=== PATIENT | male | born 1965 | race Caucasian/White ===

== ENCOUNTER 2017-08-18 09:36 | Inpatient (IN) | payer OTHER ==
[~2017-08-18] VITALS: Ht 177.8 cm; Wt 93.9 kg
[~2017-08-18 09:36] MED LIST: CALC500T42 PO; DIPH50IN2 IV; EPIN1INJ20 SQ/IV; HYDR250P IVP; LANTUS2P SC; NORC10TA2 PO; NOVOLOGSS SQ; Z.0.WALKERFRONT
[2017-08-18 09:41] VITALS: BP 126/71; PULSE 90; RESP 17; TEMP 98.3; O2SAT 99
[2017-08-18] MEDS ORDERED: CLIN150C14 PO ×2 (09:55→13:19)
[2017-08-18] MEDS ORDERED: LISI-519 PO ×2 (09:55→13:20)
[2017-08-18] MEDS ORDERED: LANTUS2P SQ ×3 (09:55→13:23)
[2017-08-18] MEDS ORDERED: NOVOLOGP2 SQ ×2 (09:56→13:21)
[2017-08-18] MEDS ORDERED: PIPERACIL-TAZO 4.5 GM PREMIX 100 ML IV STA (10:01)
[2017-08-18] MEDS ORDERED: VANCOMYCIN INJ 1,000 MG in SODIUM CHLOR 0.9% 250 ML INJ 250 ML IV STA (10:01)
[2017-08-18 10:05] VITALS: O2SAT 99
--- NOTE | 2017-08-18 10:05 | PD ---
HPI Chief Complaint: Skin Problem Time Seen by Provider: 10:00 Travel History International Travel<30 days: No Contact w/Intl Traveler<30days: No Traveled to known affect area: No History of Present Illness HPI 52-year-old male patient with history of diabetes, previous spinal surgery secondary to spinal abscess, has been following up with podiatry for a right foot ulcer, that has progressed into an osteomyelitis, here because he was sent in for admission to medicine and IV antibiotics. He denies any fevers or other issues. Modifying Factors: None Associated Signs & Symptoms: Right foot osteomyelitis Risk Factors: Diabetic PFSH Past Medical History Cancer: No Cardiovascular Problems: No Diabetes: Yes Patient Takes Glucophage: No Diminished Hearing: No Gastrointestinal Disorders: No Genitourinary: No Hypertension: Yes Implanted Vascular Access Dvce: No Musculoskeletal: No Neurologic: No Psychiatric: No Reproductive: No Respiratory: No Tetanus Vaccination: < 5 Years Past Surgical History Other Surgery: No Social History Alcohol Use: No Tobacco Use: No Substance Use: No Allergies-Medications (Allergen,Severity, Reaction): Coded Allergies: iodine (Unverified Allergy, Intermediate, HIVES, 08/18/17) potassium iodide (Unverified Allergy, Intermediate, HIVES, 08/18/17) povidone-iodine (Unverified Allergy, Intermediate, HIVES, 08/18/17) sodium iodide (Unverified Allergy, Intermediate, HIVES, 08/18/17) sodium iodide (Unverified Allergy, Intermediate, HIVES, 08/18/17) Reported Meds & Prescriptions Reported Meds & Active Scripts Active Reported Novolog Inj (Insulin Aspart) 1,000 Unit/10 Ml Vial 0 SQ DIRECTED Sliding Scale as directed. Lantus Inj (Insulin Glargine) 1,000 Unit/10 Ml Vial 60 Units SQ HS Clindamycin (Clindamycin HCl) 150 Mg Cap 300 Mg PO TID Lisinopril 5 Mg Tab 5 Mg PO DAILY Review of Systems Except as stated in HPI: all other systems reviewed are Neg Physical Exam Narrative GENERAL: Well-developed middle-age male patient currently in moderate distress. Awake and oriented 3. SKIN: Focused skin assessment warm/dry. There is notable erythema, edema, and a small ulcer at the right foot fourth and fifth digit area on the plantar surface mild edema over the right. Lateral malleolus with mild edema and erythema, mildly tender. HEAD: Atraumatic. Normocephalic. EYES: Pupils equal and round. No scleral icterus. No injection or drainage. ENT: No nasal bleeding or discharge. Mucous membranes pink and moist. NECK: Trachea midline. No JVD. CARDIOVASCULAR: Regular rate and rhythm. No murmur appreciated. RESPIRATORY: No accessory muscle use. Clear to auscultation. Breath sounds equal bilaterally. GASTROINTESTINAL: Abdomen soft, non-tender, nondistended. Hepatic and splenic margins not palpable. MUSCULOSKELETAL: No obvious deformities. No clubbing. No cyanosis. No edema. NEUROLOGICAL: Awake and alert. No obvious cranial nerve deficits. Motor grossly within normal limits. Normal speech. PSYCHIATRIC: Appropriate mood and affect; insight and judgment normal. Data Data Last Documented VS Vital Signs Date Time Temp Pulse Resp B/P (MAP) Pulse Ox O2 Delivery O2 Flow Rate FiO2 08/18/17 10:05 99 Room Air 08/18/17 09:41 98.3 90 17 126/71 (89) Orders Orders Sepsis Workup Initiated (08/18/17 ) Complete Blood Count With Diff (08/18/17 10:01) Comprehensive Metabolic Panel (08/18/17 10:01) Lactic Acid Sepsis Protocol (08/18/17 10:01) Blood Culture (08/18/17 10:01) Blood Glucose (08/18/17 10:01) Ecg Monitoring (08/18/17 10:01) Iv Access Insert/Monitor (08/18/17 10:01) Oximetry (08/18/17 10:01) Oxygen Administration (08/18/17 10:01) Piperacil-Tazo 4.5 Gm Premix (Zosyn 4.5 (08/18/17 10:01) Vancomycin Inj (Vancomycin Inj) (08/18/17 10:01) C-Reactive Protein (Crp) (08/18/17 10:01) Westergren Sedimentation Rate (08/18/17 10:01) Labs Laboratory Tests Test 08/18/17 10:10 White Blood Count 7.5 TH/MM3 Red Blood Count 5.30 MIL/MM3 Hemoglobin 15.9 GM/DL Hematocrit 46.4 % Mean Corpuscular Volume 87.5 FL Mean Corpuscular Hemoglobin 30.0 PG Mean Corpuscular Hemoglobin Concent 34.3 % Red Cell Distribution Width 12.8 % Platelet Count 207 TH/MM3 Mean Platelet Volume 9.0 FL Neutrophils (%) (Auto) 68.2 % Lymphocytes (%) (Auto) 21.5 % Monocytes (%) (Auto) 7.0 % Eosinophils (%) (Auto) 2.4 % Basophils (%) (Auto) 0.9 % Neutrophils # (Auto) 5.1 TH/MM3 Lymphocytes # (Auto) 1.6 TH/MM3 Monocytes # (Auto) 0.5 TH/MM3 Eosinophils # (Auto) 0.2 TH/MM3 Basophils # (Auto) 0.1 TH/MM3 CBC Comment DIFF FINAL Differential Comment Erythrocyte Sedimentation Rate 8 mm/hr Blood Urea Nitrogen 21 MG/DL Creatinine 1.27 MG/DL Random Glucose 92 MG/DL Total Protein 7.4 GM/DL Albumin 3.5 GM/DL Calcium Level 8.9 MG/DL Alkaline Phosphatase 71 U/L Aspartate Amino Transf (AST/SGOT) 20 U/L Alanine Aminotransferase (ALT/SGPT) 25 U/L Total Bilirubin 0.4 MG/DL Sodium Level 140 MEQ/L Potassium Level 3.8 MEQ/L Chloride Level 105 MEQ/L Carbon Dioxide Level 27.0 MEQ/L Anion Gap 8 MEQ/L Estimat Glomerular Filtration Rate 60 ML/MIN Lactic Acid Level 0.8 mmol/L C-Reactive Protein 0.90 MG/DL [facility] Medical Decision Making Medical Screen Exam Complete: Yes Emergency Medical Condition: Yes Medical Record Reviewed: Yes Interpretation(s) Laboratory Tests Test 08/18/17 10:10 Blood Urea Nitrogen 21 MG/DL (7-18) Estimat Glomerular Filtration Rate 60 ML/MIN (>89) C-Reactive Protein 0.90 MG/DL (0.00-0.30) Differential Diagnosis Right foot osteomyelitis Narrative Course Lab work initiated, IV antibiotics ordered after cultures have been drawn. Case is discussed with Dr. Prieto in for admission. Diagnosis Primary Impression: Osteomyelitis of right foot Admitting Information Admitting Physician Requests: Admit Brett De La Torre MD August 18, 2017 10:05
[2017-08-18 10:29] LABS: AUTOMATED NEUTROPHIL # 5.1 TH/MM3 (1.8-7.7); BASOPHIL # 0.1 TH/MM3 (0-0.2); BASOPHIL % 0.9 % (0.0-2.0); EOSINOPHIL # 0.2 TH/MM3 (0-0.4); EOSINOPHIL % 2.4 % (0.0-4.0); HEMATOCRIT 46.4 % (39.0-51.0); HEMOGLOBIN 15.9 GM/DL (13.0-17.0); LYMPH % 21.5 % (9.0-44.0); LYMPHOCYTE # 1.6 TH/MM3 (1.0-4.8); MEAN CELL VOLUME 87.5 FL (80.0-100.0); MEAN CORPUSCULAR HGB CONC 34.3 % (32.0-36.0); MONOCYTE # 0.5 TH/MM3 (0-0.9); NEUT % 68.2 % (16.0-70.0); PLATELET COUNT 207 TH/MM3 (150-450); RED CELL DISTRIBUTION WIDTH 12.8 % (11.6-17.2); WHITE BLOOD COUNT 7.5 TH/MM3 (4.0-11.0)
[2017-08-18 10:46] LABS: ALBUMIN 3.5 GM/DL (3.4-5.0); AST (GOT) 20 U/L (15-37); BLOOD UREA NITROGEN 21 MG/DL (7-18); CALCIUM 8.9 MG/DL (8.5-10.1); CHLORIDE 105 MEQ/L (98-107); CREATININE 1.27 MG/DL (0.60-1.30); GLOMERULAR FILTRATION RATE 60 ML/MIN (>89); GLUCOSE,RANDOM 92 MG/DL (74-106); SODIUM (NA) 140 MEQ/L (136-145)
[2017-08-18 10:49] LABS: ALKALINE PHOSPHATASE 71 U/L (45-117); ALT (GPT) 25 U/L (12-78); TOTAL BILIRUBIN ADULT 0.4 MG/DL (0.2-1.0); TOTAL PROTEIN 7.4 GM/DL (6.4-8.2)
[2017-08-18] MEDS ORDERED: GLUCAGON 1 MG/ML VIAL OTHER PRN (12:30)
[2017-08-18] MEDS ORDERED: DEXTROSE 50% IN WATER 50 ML VIAL(D50) IV PUSH PRN (12:30)
[2017-08-18] MEDS ORDERED: PRED5TAB PO (13:17)
[2017-08-18] MEDS ORDERED: BENA20TA PO (13:17)
[2017-08-18] MEDS ORDERED: GEMF600 PO (13:17)
--- NOTE | 2017-08-18 15:11 | HHI.HP ---
HPI Service [facility] Hospitalists Primary Care Physician Keena Barba MD Admission Diagnosis Right foot osteomyelitis Chief Complaint: Right foot ulcer Travel History International Travel<30 Days: No Contact w/Intl Traveler <30 Da: No Traveled to Known Affected Are: No History of Present Illness Mr. Huynh is a 52 y/o male with poorly controlled diabetes mellitus (hgb A1C 10.6% in April 2017), peripheral neuropathy and hx of T8-9 epidural abscess/ vertebral osteomyelitis in 2016. Pt has been having issues with a right foot callus on the bottom of the foot for the last several months which has been following with Dr. Barrett. Pt had a previous culture on 07/09/17 which grew out MSSA per discussion with Dr. Barrett. He was treated with Keflex. Then around 1-2 weeks ago he states that the wound opened and started oozing clear fluid fluid out. He was started on Clindamycin 300mg TID about 8 days ago. After that he had reported worsening swelling and erythema of the right foot and then noted streaking up the right foot/ankle. He saw Dr. Barrett 3 days ago and the streaking had receded and was sent for a MRI which reportedly noted possible osteomyelitis at the 5th MTP joint on 08/16/17. Pt was sent to the ED at [facility] [place] on 08/18/17 by his entry processor for concerns of possible osteomyelitis In the ED pt was given a dose of Zosyn and Vancomycin. Pt normally takes 60 units of Lantus HS and occasionally uses NovoLog SSI. He takes Lisinopril for his diabetes. Review of Systems Integumentary: COMPLAINS OF: Abnormal pigmentation Past Family Social History Past Medical History Poorly controlled, type 2 diabetes with neuropathy, HgbA1C 10.6% in 04/2017 Dyslipidemia Adhesive capsulitis of the shoulder Lumbar disc bulge T8-9 epidural abscess/vertebral osteomyelitis in 2016 Past Surgical History T8 and T9 decompressive laminectomy with transpedicular ventral epidural abscess evacuation on 05/27/[address] Olivier Mello cyst removal Reported Medications Lantus Inj (Insulin Glargine) 1,000 Unit/10 Ml Vial 60 Units SQ HS Novolog Inj (Insulin Aspart) 1,000 Unit/10 Ml Vial 0 SQ DIRECTED Sliding Scale as directed. 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 SKIN: Darkened area of skin on the lateral plantar aspect of the right foot, no significant erythema, no drainage. HEENT: Atraumatic. Normocephalic. No temporal or scalp tenderness. No scleral icterus. Airway patent. NECK: Trachea midline, supple, nontender. CARDIO: Regular. RESP: CTA bilaterally. No wheezes, rales, or rhonchi. ABD: +BS, soft, non-tender, nondistended. EXT: Extremities without clubbing, cyanosis, or edema. NEURO: Awake and alert. Motor and sensory grossly within normal limits. Normal speech. Laboratory Laboratory Tests Test 08/18/17 10:10 White Blood Count 7.5 Red Blood Count 5.30 Hemoglobin 15.9 Hematocrit 46.4 Mean Corpuscular Volume 87.5 Mean Corpuscular Hemoglobin 30.0 Mean Corpuscular Hemoglobin Concent 34.3 Red Cell Distribution Width 12.8 Platelet Count 207 Mean Platelet Volume 9.0 Neutrophils (%) (Auto) 68.2 Lymphocytes (%) (Auto) 21.5 Monocytes (%) (Auto) 7.0 Eosinophils (%) (Auto) 2.4 Basophils (%) (Auto) 0.9 Neutrophils # (Auto) 5.1 Lymphocytes # (Auto) 1.6 Monocytes # (Auto) 0.5 Eosinophils # (Auto) 0.2 Basophils # (Auto) 0.1 CBC Comment DIFF FINAL Differential Comment Erythrocyte Sedimentation Rate 8 Blood Urea Nitrogen 21 Creatinine 1.27 Random Glucose 92 Total Protein 7.4 Albumin 3.5 Calcium Level 8.9 Alkaline Phosphatase 71 Aspartate Amino Transf (AST/SGOT) 20 Alanine Aminotransferase (ALT/SGPT) 25 Total Bilirubin 0.4 Sodium Level 140 Potassium Level 3.8 Chloride Level 105 Carbon Dioxide Level 27.0 Anion Gap 8 Estimat Glomerular Filtration Rate 60 Lactic Acid Level 0.8 C-Reactive Protein 0.90 Date/Time Source Procedure Growth Status 08/18/17 10:10 Blood Peripheral Aerobic Blood Culture Pending Received 08/18/17 10:10 Blood Peripheral Anaerobic Blood Culture Pending Received Result Diagram: 08/18/17 1010 08/18/17 1010 Caprini VTE Risk Assessment Caprini VTE Risk Assessment: Mod/High Risk (score >= 2) Caprini Risk Assessment Model Point Value = 1 Point Value = 2 Point Value = 3 Point Value = 5 Age 41-60 Minor surgery BMI > 25 kg/m2 Swollen legs Varicose veins or History of unexplained or recurrent spontaneous Oral contraceptives or hormone replacement Sepsis (< 1 month) Serious lung disease, including pneumonia (< 1 month) Abnormal pulmonary function Acute myocardial infarction Congestive heart failure (< 1 month) History of inflammatory bowel disease Medical patient at bed rest Age 61-74 Arthroscopic surgery Major open surgery (> 45 min) Laparoscopic surgery (> 45 min) Malignancy Confined to bed (> 72 hours) Immobilizing plaster cast Central venous access Age >= 75 History of VTE Family history of VTE Factor V Leiden Prothrombin [id number] Lupus anticoagulant Anticardiolipin antibodies Elevated serum homocysteine Heparin-induced thrombocytopenia Other congenital or acquired thrombophilia Stroke (< 1 month) Elective arthroplasty Hip, pelvis, or leg fracture Acute spinal cord injury (< 1 month) Prophylaxis Regimen Total Risk Factor Score Risk Level Prophylaxis Regimen 0-1 Low Early ambulation 2 Moderate Order ONE of the following: *Sequential Compression Device (SCD) *Heparin 5000 units SQ BID 3-4 Higher Order ONE of the following medications: *Heparin 5000 units SQ TID *Enoxaparin/Lovenox 40 mg SQ daily (WT < 150 kg, CrCl > 30 mL/min) *Enoxaparin/Lovenox 30 mg SQ daily (WT < 150 kg, CrCl > 10-29 mL/min) *Enoxaparin/Lovenox 30 mg SQ BID (WT < 150 kg, CrCl > 30 mL/min) AND/OR *Sequential Compression Device (SCD) 5 or more Highest Order ONE of the following medications: *Heparin 5000 units SQ TID (Preferred with Epidurals) *Enoxaparin/Lovenox 40 mg SQ daily (WT < 150 kg, CrCl > 30 mL/min) *Enoxaparin/Lovenox 30 mg SQ daily (WT < 150 kg, CrCl > 10-29 mL/min) *Enoxaparin/Lovenox 30 mg SQ BID (WT < 150 kg, CrCl > 30 mL/min) AND *Sequential Compression Device (SCD) Assessment and Plan Problem List: (1) Diabetic foot ulcer ICD Codes: E11.621 - Type 2 diabetes mellitus with foot ulcer; L97.509 - Non- pressure chronic ulcer of other part of unspecified foot with unspecified severity Status: Chronic Plan: Diabetic foot wound Possible osteomyelitis - Pt is a 52 y/o male with poorly controlled diabetes mellitus (hgb A1C 10.6% in April 2017), peripheral neuropathy and hx of T8-9 epidural abscess/ vertebral osteomyelitis in 2015. - Pt has been having issues with a right foot callus on the bottom of the foot for the last several months which he has been following with Dr. Barrett. Pt had a previous culture on 07/09/17 which grew out MSSA per discussion with Dr. Barrett. He was treated with Keflex. Then around 1-2 weeks ago he states that the wound opened up and started oozing clear fluid fluid out. He was started on Clindamycin 300mg TID about 8 days ago. After that he had reported worsening swelling and erythema of the right foot and then noted streaking up the right foot/ankle. He saw Dr. Barrett 3 days ago and the streaking had receded and was sent for a MRI which reportedly noted possible osteomyelitis on 08/16/17. - Pt was sent to the ED at [facility] on 08/18/17 by his entry processor for concerns of possible osteomyelitis at the 5th MTP joint. - In the ED pt was given a dose of Zosyn and Vancomycin. - We will hold on continuing antibiotics at this time until podiatry evaluates and determines about surgery and bone biopsy - Supportive care - DVT prophylaxis with SCDs Diabetes mellitus, type 2, poorly controlled - Pt normally takes 60 units of Lantus HS and occasionally uses NovoLog SSI. - Cont. NovoLog SSI, medium dose - Levemir 30 units HS - Accu checks - Cont. Lisinopril Hyperlipidemia - Cont. home meds (2) DM (diabetes mellitus), type 2, uncontrolled ICD Codes: E11.65 - Type 2 diabetes mellitus with hyperglycemia Status: Chronic (3) Diabetic neuropathy ICD Codes: E11.40 - Type 2 diabetes mellitus with diabetic neuropathy, unspecified Status: Chronic (4) Hyperlipidemia ICD Codes: E78.5 - Hyperlipidemia, unspecified Status: Chronic Assessment and Plan Patient examined. Assessment and plan formulated with Alka Barrios PA-C. I agree with the above right plantar ulceration and possible 5th metatarsal joint infection discussed with dr Barrett. probably resect the joint and the infected tissue and close. pt given abx in ED. cont levemir and ssi. adjust as needed. await surgical cx's and bx. Physician Certification 2 Midnight Certification Type: Admission for Inpatient Services Order for Inpatient Services The services are ordered in accordance with Medicare regulations or non- Medicare payer requirements, as applicable. In the case of services not specified as inpatient-only, they are appropriately provided as inpatient services in accordance with the 2-midnight benchmark. Estimated LOS (days): 2 2 days is the estimated time the patient will need to remain in the hospital, assuming treatment plan goals are met and no additional complications. Post-Hospital Plan: Alka Campbell August 18, 2017 15:11 Baldev Prieto MD August 18, 2017 17:07
[2017-08-18] MEDS ORDERED: LIPI20TA PO (15:38)
[2017-08-18 16:00] VITALS: BP 159/96; PULSE 81; RESP 20; TEMP 98.2; O2SAT 97
[2017-08-18] MEDS ORDERED: ONDANSETRON HCL 4 MG/2 ML VIAL IV PRN (16:00)
[2017-08-18] MEDS ORDERED: INSULIN ASPART SUPPLEMENTAL SCALE SQ SCH (17:00)
[2017-08-18] MEDS: INSULIN ASPART SUPPLEMENTAL SCALE SQ SCH ×2 (18:04→21:00)
--- NOTE | 2017-08-18 19:23 | PD.CONS ---
History of Present Illness Service Podiatry/foot and ankle surgery Consult Requested By Reason for Consult Right foot ulceration with osteomyelitis Primary Care Physician Keena Barba MD Diagnoses: History of Present Illness Podiatry consultation for this 8-year-old male patient with history of diabetes and previous spinal surgery secondary to spinal abscess for right foot ulceration with fifth metatarsal head osteomyelitis right foot. Patient was sent by Dr. Barrett for IV antibiotics and surgical intervention. Patient denies any nausea vomiting fevers or chills. He states he is eager to get back to work. Review of Systems Constitutional: DENIES: Fatigue, Fever Endocrine: DENIES: Heat/cold intolerance Respiratory: DENIES: Cough, Shortness of breath Cardiovascular: DENIES: Chest pain, Palpitations Gastrointestinal: DENIES: Abdominal pain Musculoskeletal: DENIES: Joint pain Neurologic: DENIES: Abnormal gait Past Family Social History Allergies: Coded Allergies: iodine (Unverified Allergy, Intermediate, HIVES, 08/18/17) potassium iodide (Unverified Allergy, Intermediate, HIVES, 08/18/17) povidone-iodine (Unverified Allergy, Intermediate, HIVES, 08/18/17) sodium iodide (Unverified Allergy, Intermediate, HIVES, 08/18/17) sodium iodide (Unverified Allergy, Intermediate, HIVES, 08/18/17) Past Medical History As per HPI Active Ordered Medications Current Medications Medications (Trade) Dose Ordered Sig/Kai Route Start Time Stop Time Status Last Admin (Prinivil) 5 mg DAILY PO 08/19/17 09:00 (NovoLOG SUPPLEMENTAL SCALE) 1 ACHS SLIDING SCALE SQ 08/18/17 17:00 08/18/17 18:04 (D50w (Vial) Inj) 50 ml UNSCH PRN IV PUSH 08/18/17 12:30 (Glucagon Inj) 1 mg UNSCH PRN OTHER 08/18/17 12:30 (Levemir Inj) 30 units HS SQ 08/18/17 21:00 (Lipitor) 20 mg HS PO 08/18/17 21:00 (Tylenol) 650 mg Q4H PRN PO 08/18/17 16:00 (Zofran Inj) 4 mg Q6H PRN IV 08/18/17 16:00 Physical Exam Vital Signs Vital Signs Date Time Temp Pulse Resp B/P (MAP) Pulse Ox O2 Delivery O2 Flow Rate FiO2 08/18/17 16:00 98.2 81 20 159/96 (117) 97 08/18/17 14:06 Room Air 08/18/17 10:05 99 Room Air 08/18/17 10:05 99 08/18/17 09:41 98.3 90 17 126/71 (89) 99 Physical Exam GENERAL: This is a well-nourished, well-developed patient, in no apparent distress. SKIN: Right sub-met 5 ulceration HEAD: Atraumatic. EYES: Pupils equal round and reactive. ENT: Airway patent. NECK: Trachea midline. RESPIRATORY: Nonlabored breathing. MUSCULOSKELETAL:. Negative Homans sign bilaterally. NEUROLOGICAL: Awake and alert. Normal speech. Lower extremity physical exam: Vascular: Dorsalis pedis palpable, posterior tibial palpable. Capillary refill time within normal limits to digits 5 bilateral foot. Edema not present right foot Neuro: Gross sensation intact to bilateral lower extremity. Pinpoint sensation decreased to bilateral lower extremity. No hyperalgesia noted to bilateral lower extremity Dermatology: Normal temperature and turgor to bilateral lower extremity. Ulceration noted to right submet 5 with hyperkeratotic skin edges and surrounding erythema no drainage. Musculoskeletal: Tender to palpation to submet 5. Laboratory Laboratory Tests Test 08/18/17 10:10 White Blood Count 7.5 Red Blood Count 5.30 Hemoglobin 15.9 Hematocrit 46.4 Mean Corpuscular Volume 87.5 Mean Corpuscular Hemoglobin 30.0 Mean Corpuscular Hemoglobin Concent 34.3 Red Cell Distribution Width 12.8 Platelet Count 207 Mean Platelet Volume 9.0 Neutrophils (%) (Auto) 68.2 Lymphocytes (%) (Auto) 21.5 Monocytes (%) (Auto) 7.0 Eosinophils (%) (Auto) 2.4 Basophils (%) (Auto) 0.9 Neutrophils # (Auto) 5.1 Lymphocytes # (Auto) 1.6 Monocytes # (Auto) 0.5 Eosinophils # (Auto) 0.2 Basophils # (Auto) 0.1 CBC Comment DIFF FINAL Differential Comment Erythrocyte Sedimentation Rate 8 Blood Urea Nitrogen 21 Creatinine 1.27 Random Glucose 92 Total Protein 7.4 Albumin 3.5 Calcium Level 8.9 Alkaline Phosphatase 71 Aspartate Amino Transf (AST/SGOT) 20 Alanine Aminotransferase (ALT/SGPT) 25 Total Bilirubin 0.4 Sodium Level 140 Potassium Level 3.8 Chloride Level 105 Carbon Dioxide Level 27.0 Anion Gap 8 Estimat Glomerular Filtration Rate 60 Lactic Acid Level 0.8 C-Reactive Protein 0.90 Date/Time Source Procedure Growth Status 08/18/17 10:10 Blood Peripheral Aerobic Blood Culture Pending Received 08/18/17 10:10 Blood Peripheral Anaerobic Blood Culture Pending Received Result Diagram: 08/18/17 1010 08/18/17 1010 Assessment and Plan Assessment and Plan 52-year-old male with osteomyelitis to fifth metatarsal head with submetatarsal 5 ulceration Patient examined and evaluated with all questions answered Discussed [facility] with patient fifth metatarsal head positive for osteomyelitis Fifth metatarsal head continues to be a problem for patient as it continues to be source of ulceration to plantar fifth met head Patient understands all risks complications and benefits associated with surgical intervention and would like to proceed with surgical intervention as he is interested in getting back to work as soon as possible Discussed with patient and patient's To OR tomorrow N.p.o. after midnight Mayra Rosenthal DPM August 18, 2017 19:23
[2017-08-18 20:11] VITALS: BP 127/73; PULSE 76; RESP 20; TEMP 98.1; O2SAT 97
[2017-08-18] MEDS ORDERED: INSULIN DETEMIR 100 UNITS/ML VIAL SQ SCH (21:00)
[2017-08-18] MEDS: ATORVASTATIN 20 MG TAB PO SCH (22:01)
[2017-08-19 00:05] VITALS: BP 118/71; PULSE 78; RESP 20; TEMP 98.1; O2SAT 98
[2017-08-19 04:04] VITALS: BP 121/78; PULSE 69; RESP 20; TEMP 97.8; O2SAT 97
[2017-08-19] MEDS ORDERED: LACTATED RINGER'S 1000 ML IV PRN (05:45)
[2017-08-19] MEDS ORDERED: SODIUM CHLORID 0.9% 500 ML IV PRN (05:45)
[2017-08-19 08:00] VITALS: BP 111/71; PULSE 79; RESP 20; TEMP 97.5; O2SAT 96
[2017-08-19] MEDS: INSULIN ASPART SUPPLEMENTAL SCALE SQ SCH ×4 (08:00→21:00)
[2017-08-19 08:51] LABS: AUTOMATED NEUTROPHIL # 5.4 TH/MM3 (1.8-7.7); BASOPHIL # 0.1 TH/MM3 (0-0.2); BASOPHIL % 1.2 % (0.0-2.0); EOSINOPHIL # 0.3 TH/MM3 (0-0.4); EOSINOPHIL % 3.5 % (0.0-4.0); HEMATOCRIT 44.4 % (39.0-51.0); LYMPH % 18.5 % (9.0-44.0); LYMPHOCYTE # 1.4 TH/MM3 (1.0-4.8); MEAN CELL VOLUME 87.4 FL (80.0-100.0); MEAN CORPUSCULAR HEMOGLOBIN 29.6 PG (27.0-34.0); MEAN CORPUSCULAR HGB CONC 33.9 % (32.0-36.0); MEAN PLATELET VOLUME 9.5 FL (7.0-11.0); MONO % 7.3 % (0.0-8.0); MONOCYTE # 0.6 TH/MM3 (0-0.9); NEUT % 69.5 % (16.0-70.0); PLATELET COUNT 201 TH/MM3 (150-450); RED BLOOD COUNT 5.08 MIL/MM3 (4.50-5.90); RED CELL DISTRIBUTION WIDTH 12.7 % (11.6-17.2); WHITE BLOOD COUNT 7.8 TH/MM3 (4.0-11.0)
[2017-08-19] MEDS ORDERED: LISINOPRIL 5 MG TAB PO SCH (09:00)
[2017-08-19 09:15] LABS: BICARBONATE 27.3 MEQ/L (21.0-32.0); CALCIUM 9.1 MG/DL (8.5-10.1); CREATININE 1.05 MG/DL (0.60-1.30); MAGNESIUM 2.1 MG/DL (1.5-2.5)
[2017-08-19] MEDS: LISINOPRIL 5 MG TAB PO SCH (09:32)
[2017-08-19] MEDS ORDERED: D5-NS + KCL 20 MEQ INJ 1,000 ML IV SCH (10:00)
--- NOTE | 2017-08-19 10:02 | HHI.PR ---
Subjective Remarks lying in bed. no complaints Objective Vitals heart reg lung cta abd s/nt ext right plantar ulceration under 5th mtp joint no redness and no drainage. Vital Signs Date Time Temp Pulse Resp B/P (MAP) Pulse Ox O2 Delivery O2 Flow Rate FiO2 08/19/17 08:00 97.5 79 20 111/71 (84) 96 08/19/17 04:04 97.8 69 20 121/78 (92) 97 08/19/17 00:05 98.1 78 20 118/71 (87) 98 08/18/17 20:11 98.1 76 20 127/73 (91) 97 08/18/17 16:00 98.2 81 20 159/96 (117) 97 08/18/17 14:06 Room Air 08/18/17 10:05 99 Room Air 08/18/17 10:05 99 Result Diagram: 08/19/17 0720 08/19/17 0720 A/P Problem List: (1) Diabetic foot ulcer ICD Codes: E11.621 - Type 2 diabetes mellitus with foot ulcer; L97.509 - Non- pressure chronic ulcer of other part of unspecified foot with unspecified severity Status: Acute Plan: Diabetic foot wound Possible osteomyelitis - Pt is a 52 y/o male with poorly controlled diabetes mellitus (hgb A1C 10.6% in April 2017), peripheral neuropathy and hx of T8-9 epidural abscess/ vertebral osteomyelitis in 2015. - Pt has been having issues with a right foot callus on the bottom of the foot for the last several months which he has been following with Dr. Barrett. Pt had a previous culture on 07/09/17 which grew out MSSA per discussion with Dr. Barrett. He was treated with Keflex. Then around 1-2 weeks ago he states that the wound opened up and started oozing clear fluid fluid out. He was started on Clindamycin 300mg TID about 8 days ago. After that he had reported worsening swelling and erythema of the right foot and then noted streaking up the right foot/ankle. He saw Dr. Barrett 3 days ago and the streaking had receded and was sent for a MRI which reportedly noted possible osteomyelitis on 08/16/17. - Pt was sent to the [place] [facility] [place] by his benchroom shop optician for concerns of possible osteomyelitis at the 5th MTP joint. - In the ED pt was given a dose of Zosyn and Vancomycin. - We will hold on continuing antibiotics until after surgery - after discussing with podiatry they plan to resect the 5th mtp joint and involved soft tissue - DVT prophylaxis with SCDs Diabetes mellitus, type 2, poorly controlled - Pt normally takes 60 units of Lantus HS and occasionally uses NovoLog SSI. - Cont. NovoLog SSI, medium dose - we had him on 50 percent of his basal insulin last night. hypoglycemia today in 50s given d50. can give d5ns while npo and taking po after surgery. discussed with RN Hyperlipidemia - Cont. home meds (2) DM (diabetes mellitus), type 2, uncontrolled ICD Codes: E11.65 - Type 2 diabetes mellitus with hyperglycemia Status: Chronic (3) Diabetic neuropathy ICD Codes: E11.40 - Type 2 diabetes mellitus with diabetic neuropathy, unspecified Status: Chronic (4) Hyperlipidemia ICD Codes: E78.5 - Hyperlipidemia, unspecified Status: Chronic Baldev Prieto MD August 19, 2017 10:01
[2017-08-19] MEDS ORDERED: LIDOCAINE HCL 1% 50 ML VIAL ONE (10:45)
[2017-08-19] MEDS ORDERED: BACITRACIN TOP OINT 15 GM TUBE ONE (10:45)
[2017-08-19] MEDS ORDERED: BUPIVACAINE HCL PF 0.5% 30 ML VIAL ONE (10:45)
[2017-08-19] MEDS: ACETAMINOPHEN 325 MG TAB PO PRN (11:40)
[2017-08-19] MEDS ORDERED: PHENYLEPH/NS 1000 MCG/10 ML SYR IV ONE (12:00)
[2017-08-19] MEDS ORDERED: LIDOCAINE HCL 1% PF 5 ML SYRINGE OTHER ONE (12:00)
[2017-08-19] MEDS ORDERED: ceFAZolin INJ 1,000 MG VIAL IV ONE ×2 (12:00→13:10)
[2017-08-19] MEDS ORDERED: ONDANSETRON HCL 4 MG/2 ML VIAL IV ONE (12:00)
[2017-08-19] MEDS ORDERED: PROPOFOL 200 MG/20 ML AMP IV ONE (12:00)
[2017-08-19] MEDS ORDERED: ROCURONIUM INJ 50 MG/5 ML SYRINGE IV PUSH ONE (12:00)
[2017-08-19] MEDS ORDERED: SUCCINYLCHOLINE CHLORIDE 100 MG/5 ML SYRINGE IV PUSH ONE (12:00)
[2017-08-19] MEDS ORDERED: ACETAMINOPHEN 1000 MG/100 ML 100 ML IV ONE (12:29)
--- NOTE | 2017-08-19 12:40 | HHI.PR ---
Subjective Remarks Patient seen bedside with patient's bedside. Denies N,V,F, Ch. Objective Vital Signs Date Time Temp Pulse Resp B/P (MAP) Pulse Ox O2 Delivery O2 Flow Rate FiO2 08/19/17 08:00 97.5 79 20 111/71 (84) 96 08/19/17 04:04 97.8 69 20 121/78 (92) 97 08/19/17 00:05 98.1 78 20 118/71 (87) 98 08/18/17 20:11 98.1 76 20 127/73 (91) 97 08/18/17 16:00 98.2 81 20 159/96 (117) 97 08/18/17 14:06 Room Air I/O 08/18/17 08/18/17 08/18/17 08/19/17 08/19/17 08/19/17 07:00 15:00 23:00 07:00 15:00 23:00 Intake Total 100 ml 240 ml Balance 100 ml 240 ml Intake Oral 240 ml IV Total 100 ml # Voids 1 3 1 # Bowel Movements 1 Result Diagram: 08/19/17 0720 08/19/17 0720 Other Results Microbiology Date/Time Source Procedure Growth Status 08/18/17 10:10 Blood Peripheral Aerobic Blood Culture - Preliminary NO GROWTH IN 1 DAY Resulted 08/18/17 10:10 Blood Peripheral Anaerobic Blood Culture - Preliminary NO GROWTH IN 1 DAY Resulted Objective Remarks Lower extremity physical exam: Vascular: Dorsalis pedis palpable, posterior tibial palpable. Capillary refill time within normal limits to digits 5 bilateral foot. Edema not present right foot Neuro: Gross sensation intact to bilateral lower extremity. Pinpoint sensation decreased to bilateral lower extremity. No hyperalgesia noted to bilateral lower extremity Dermatology: Normal temperature and turgor to bilateral lower extremity. Ulceration noted to right submet 5 with hyperkeratotic skin edges and surrounding erythema no drainage. Musculoskeletal: Tender to palpation to submet 5. Medications and IVs Current Medications Medications (Trade) Dose Ordered Sig/Kai Route Start Time Stop Time Status Last Admin (Prinivil) 5 mg DAILY PO 08/19/17 09:00 08/19/17 09:32 (NovoLOG SUPPLEMENTAL SCALE) 1 ACHS SLIDING SCALE SQ 08/18/17 17:00 08/18/17 18:04 (D50w (Vial) Inj) 50 ml UNSCH PRN IV PUSH 08/18/17 12:30 08/19/17 08:25 (Glucagon Inj) 1 mg UNSCH PRN OTHER 08/18/17 12:30 (Lipitor) 20 mg HS PO 08/18/17 21:00 08/18/17 22:01 (Tylenol) 650 mg Q4H PRN PO 08/18/17 16:00 08/19/17 11:40 (Zofran Inj) 4 mg Q6H PRN IV 08/18/17 16:00 Lactated Ringer's 1,000 ml @ 30 mls/hr Q24H PRN IV 08/19/17 05:45 08/22/17 05:44 Sodium Chloride 500 ml @ 30 mls/hr [id number] PRN IV 08/19/17 05:45 08/22/17 05:44 (Levemir Inj) 20 units HS SQ 08/19/17 21:00 Potassium Chloride/Dextrose/ Sod Cl 1,000 ml @ 75 mls/hr [id number] IV 08/19/17 10:00 08/19/17 10:00 Assessment and Plan Assessment and Plan 52-year-old male with osteomyelitis to fifth metatarsal head with submetatarsal 5 ulceration Patient examined and evaluated with all questions answered TO OR today for right 5th metatarsal head resection with debridement of submet 5 ulceration Discussed MRI is performed [facility] with patient fifth metatarsal head positive for osteomyelitis Patient understands all risks complications and benefits associated with surgical intervention and would like to proceed with surgical intervention Discussed with patient and patient's Consent signed RLE Mayra Aragon DPM August 19, 2017 12:39
--- NOTE | 2017-08-19 13:33 | HHI.PR ---
Immediate Post Op Note Procedure Date: August 19, 2017 Pre Op Diagnosis: (1) Diabetic foot ulcer (2) Osteomyelitis of right foot Post Op Diagnosis: (1) Osteomyelitis of right foot (2) Diabetic foot ulcer Surgeon: Mayra Rosenthal Oil Program Compliance Specialist(s): none Procedure: Right 5th metatarsal head resection with debridement of submet 5 wound Findings: none Additional Information: none Complications: none Specimen(s) removed: 1. Right foot soft tissue for micro 2. Bone 5th metatarsal head for path 3. Proximal clearing margin 5th metatarsal for path and micro Estimated blood loss: 2cc Anesthesia: General Drains: None IVF Patient to: PACU Patient Condition: Good Mayra Rosenthal DPM August 19, 2017 13:33
[2017-08-19] MEDS ORDERED: Post-op Orders (for Pharmacy) XX ONE (13:45)
[2017-08-19] MEDS ORDERED: DO NOT ADM ANY ANTICOAGULANT DRUGS PRN (14:00)
--- NOTE | 2017-08-19 14:11 | EKG ---
Date Performed: 08/19/2017 Time Performed: 05:25:02 PTAGE: 52 years EKG: Sinus rhythm Right bundle branch block When compared to previous tracing, sinus rate is now slower. Abnormal ECG PREVIOUS TRACING : 05/27/2015 11.43.58 DOCTOR: Keshawn Baldwin Interpretating Date/Time 08/19/2017 14:09:23
--- NOTE | 2017-08-19 14:50 | RADRPT ---
EXAM DATE/TIME: 08/19/2017 15:19 [facility] COMPARISON: No previous studies available for comparison. INDICATIONS : Post op right foot. MEDICAL HISTORY : None. SURGICAL HISTORY : None. ENCOUNTER: Subsequent ACUITY: 1 day PAIN SCORE: Non-responsive. LOCATION: Right lateral FINDINGS: 3 views of the right foot. Bone defect sharply marginated at the distal fifth metatarsal indicating r ecent bone resection. The phalanges remain in place. No other evidence of fracture or bone erosion. M oderate-sized plantar calcaneal spur. CONCLUSION: Bone defect of the distal fifth metatarsal beginning at the distal shaft and also including the metat arsal neck and head indicating recent surgical resection of bone. Vik Amanda MD on August 19, 2017 at 14:46 Board Certified Radiologist. This report was verified electronically.
[2017-08-19 16:00] VITALS: BP 99/59; PULSE 72; RESP 20; TEMP 97.6; O2SAT 97
--- NOTE | 2017-08-19 18:05 | RADRPT ---
EXAM DATE/TIME: 08/18/2017 00:00 [facility] COMPARISON: No previous studies available for comparison. INDICATIONS : Right foot osteomyelitis TECHNIQUE: Five-station segmental examination of the lower extremities was performed. Pulsed-cuff waveform tracings and pressures were recorded. Ankle-brachial indices and toe-brachial indices were calculated. PRESSURES (mmHg): Brachial (arm): Right iv site Left 121 Lower Thigh: Right 144 Left 155 Calf: Right 113 Left 124 Ankle: Right 140 Left 135 Toe: Right 98 Left 97 RAFAEL: Right 1.16 Left 1.12 TBI: Right 0.81 Left 0.80 PULSED CUFF WAVEFORMS: Demonstrate normal amplitude bilaterally. CONCLUSION: Unremarkable segmental evaluation of the lower extremities. Santos Coleman MD on August 19, 2017 at 18:02 Board Certified Radiologist. This report was verified electronically.
[2017-08-19 20:00] VITALS: BP 98/55; PULSE 75; RESP 20; TEMP 98.4; O2SAT 96
[2017-08-19] MEDS: INSULIN DETEMIR 100 UNITS/ML VIAL SQ SCH (21:00)
[2017-08-19] MEDS: ATORVASTATIN 20 MG TAB PO SCH (21:00)
[2017-08-20] VITALS: BP 104/66; PULSE 84; RESP 20; TEMP 98.5; O2SAT 95
[2017-08-20 05:16] VITALS: BP 114/67; PULSE 90; RESP 20; TEMP 98.3; O2SAT 96
[2017-08-20 08:00] VITALS: BP 113/65; PULSE 81; RESP 20; TEMP 98.4; O2SAT 95
[2017-08-20] MEDS: INSULIN ASPART SUPPLEMENTAL SCALE SQ SCH ×4 (08:00→20:57)
[2017-08-20] MEDS: LISINOPRIL 5 MG TAB PO SCH (09:02)
--- NOTE | 2017-08-20 09:59 | HHI.PR ---
Subjective Remarks no complaints Objective Vitals heart reg lung cta abd s/nt ext right foot heavily bandaged. Vital Signs Date Time Temp Pulse Resp B/P (MAP) Pulse Ox O2 Delivery O2 Flow Rate FiO2 08/20/17 08:00 Room Air 08/20/17 08:00 98.4 81 20 113/65 (81) 95 08/20/17 05:16 98.3 90 20 114/67 (83) 96 08/20/17 00:00 98.5 84 20 104/66 (79) 95 08/19/17 20:00 98.4 75 20 98/55 (69) 96 08/19/17 16:00 97.6 72 20 99/59 (72) 97 08/19/17 15:25 98 Nasal Cannula 2.00 08/19/17 14:15 72 14 102/70 (81) 97 Nasal Cannula 3 08/19/17 14:00 77 14 106/71 (83) 97 Nasal Cannula 3 08/19/17 13:45 77 14 108/70 (83) 96 Nasal Cannula 3 08/19/17 13:38 98.2 79 14 111/65 (80) 94 Nasal Cannula 3 Result Diagram: 08/19/17 0720 08/19/17 0720 A/P Problem List: (1) Diabetic foot ulcer ICD Codes: E11.621 - Type 2 diabetes mellitus with foot ulcer; L97.509 - Non- pressure chronic ulcer of other part of unspecified foot with unspecified severity Status: Acute Plan: Diabetic foot wound Possible osteomyelitis - Pt is a 52 y/o male with poorly controlled diabetes mellitus (hgb A1C 10.6% in April 2017), peripheral neuropathy and hx of T8-9 epidural abscess/ vertebral osteomyelitis in 2015. - Pt has been having issues with a right foot callus on the bottom of the foot for the last several months which he has been following with Dr. Barrett. Pt had a previous culture on 07/09/17 which grew out MSSA per discussion with Dr. Barrett. He was treated with Keflex. Then around 1-2 weeks ago he states that the wound opened up and started oozing clear fluid fluid out. He was started on Clindamycin 300mg TID about 8 days ago. After that he had reported worsening swelling and erythema of the right foot and then noted streaking up the right foot/ankle. He saw Dr. Barrett 3 days ago and the streaking had receded and was sent for a MRI which reportedly noted possible osteomyelitis on 08/16/17. - Pt was sent to the ED at [facility] [place] by his acquisition marketing coordinator for concerns of possible osteomyelitis at the 5th MTP joint. - In the ED pt was given a dose of Zosyn and Vancomycin. - We will hold on continuing antibiotics until after surgery - 08/19 Procedure: Right 5th metatarsal head resection with debridement Specimen(s) removed: 1. Right foot soft tissue for micro 2. Bone 5th metatarsal head for path 3. Proximal clearing margin 5th metatarsal for path and micro will plan for disposition on Monday once path and micro return. Diabetes mellitus, type 2, poorly controlled - Pt normally takes 60 units of Lantus HS and occasionally uses NovoLog SSI. - Cont. NovoLog SSI, medium dose - Pt bg controlled on 20u levemir hs. titrate as needed. Hyperlipidemia - Cont. home meds (2) DM (diabetes mellitus), type 2, uncontrolled ICD Codes: E11.65 - Type 2 diabetes mellitus with hyperglycemia Status: Chronic (3) Diabetic neuropathy ICD Codes: E11.40 - Type 2 diabetes mellitus with diabetic neuropathy, unspecified Status: Chronic (4) Hyperlipidemia ICD Codes: E78.5 - Hyperlipidemia, unspecified Status: Chronic Baldev Prieto MD August 20, 2017 09:59
--- NOTE | 2017-08-20 11:29 | HHI.PR ---
Subjective Remarks Patient seen bedside postop day 1. Denies any nausea vomiting fevers or chills. Denies any calf pain shortness of breath or chest pain. States he feels swelling into his toes. He has been working with physical therapy to remain nonweightbearing to the right lower extremity with a walker. Objective Vital Signs Date Time Temp Pulse Resp B/P (MAP) Pulse Ox O2 Delivery O2 Flow Rate FiO2 08/20/17 08:00 Room Air 08/20/17 08:00 98.4 81 20 113/65 (81) 95 08/20/17 05:16 98.3 90 20 114/67 (83) 96 08/20/17 00:00 98.5 84 20 104/66 (79) 95 08/19/17 20:00 98.4 75 20 98/55 (69) 96 08/19/17 16:00 97.6 72 20 99/59 (72) 97 08/19/17 15:25 98 Nasal Cannula 2.00 08/19/17 14:15 72 14 102/70 (81) 97 Nasal Cannula 3 08/19/17 14:00 77 14 106/71 (83) 97 Nasal Cannula 3 08/19/17 13:45 77 14 108/70 (83) 96 Nasal Cannula 3 08/19/17 13:38 98.2 79 14 111/65 (80) 94 Nasal Cannula 3 I/O 08/19/17 08/19/17 08/19/17 08/20/17 08/20/17 08/20/17 07:00 15:00 23:00 07:00 15:00 23:00 Intake Total 800 ml 240 ml 240 ml Output Total 5 ml Balance 795 ml 240 ml 240 ml Intake Oral 240 ml 240 ml Other 800 ml Output Estimated Blood Loss 5 ml # Voids 1 4 # Bowel Movements 1 2 Result Diagram: 08/19/17 0720 08/19/17 0720 Imaging Last Impressions Foot X-Ray 08/19/17 0000 Signed Impressions: Service Date/Time: Saturday, August 19, 2017 15:19 - CONCLUSION: Bone defect of the distal fifth metatarsal beginning at the distal shaft and also including the metatarsal neck and head indicating recent surgical resection of bone. Vik Amanda MD Procedures Status post right foot fifth metatarsal head resection with right foot submet 5 wound debridement Other Results Microbiology Date/Time Source Procedure Growth Status 5/4/18 10:10 Blood Peripheral Aerobic Blood Culture - Preliminary NO GROWTH IN 2 DAYS Resulted 08/18/17 10:10 Blood Peripheral Anaerobic Blood Culture - Preliminary NO GROWTH IN 2 DAYS Resulted 08/19/17 13:15 Wound Foot Fungal Smear - Final NO FUNGAL ELEMENTS SEEN. Resulted 08/19/17 13:15 Wound Foot Fungal Culture Pending Resulted Objective Remarks Lower extremity physical exam: Vascular: Dorsalis pedis palpable, posterior tibial palpable. Capillary refill time within normal limits to digits 5 bilateral foot. Edema not present right foot. Neuro: Gross sensation intact to bilateral lower extremity. Pinpoint sensation decreased to bilateral lower extremity. No hyperalgesia noted to bilateral lower extremity Derm: Dressing intact to right lower extremity. No strikethrough noted to right lower extremity. Musculoskeletal: Active/passive dorsiflexion plantarflexion of digits 5 right foot. No pain on right calf squeeze, negative Homans sign. Medications and IVs Current Medications Medications (Trade) Dose Ordered Sig/Kai Route Start Time Stop Time Status Last Admin (Prinivil) 5 mg DAILY PO 08/19/17 09:00 08/20/17 09:02 (NovoLOG SUPPLEMENTAL SCALE) 1 ACHS SLIDING SCALE SQ 08/18/17 17:00 08/19/17 21:00 (D50w (Vial) Inj) 50 ml UNSCH PRN IV PUSH 08/18/17 12:30 08/19/17 08:25 (Glucagon Inj) 1 mg UNSCH PRN OTHER 08/18/17 12:30 (Lipitor) 20 mg HS PO 08/18/17 21:00 08/19/17 21:00 (Tylenol) 650 mg Q4H PRN PO 08/18/17 16:00 08/19/17 11:40 (Zofran Inj) 4 mg Q6H PRN IV 08/18/17 16:00 Lactated Ringer's 1,000 ml @ 30 mls/hr Q24H PRN IV 08/19/17 05:45 08/22/17 05:44 Sodium Chloride 500 ml @ 30 mls/hr [id number] PRN IV 08/19/17 05:45 08/22/17 05:44 (Levemir Inj) 20 units HS SQ 08/19/17 21:00 08/19/17 21:00 ([facility] ALL NURSING DEPARTME... UNSCH PRN .XX 08/19/17 14:00 08/20/17 13:59 Assessment and Plan Assessment and Plan 52-year-old male with osteomyelitis to fifth metatarsal head with submetatarsal 5 ulceration Status post right fifth met head resection with right submetatarsal 5 ulcer debridement date of surgery 08/19/2017 Patient examined and evaluated with all questions answered Will change dressing prior to discharge Anticipate discharge once bone biopsy returns and appropriate antibiotic recommendations have been made Patient will need to follow-up with me within 1 week of discharge Mayra Rosenthal DPM August 20, 2017 11:29
[2017-08-20 12:00] VITALS: BP 116/65; PULSE 81; RESP 20; TEMP 97.7; O2SAT 93
[2017-08-20 13:18] LABS: HEMOGLOBIN A1C 10.2 % (4.3-6.0)
[2017-08-20 16:00] VITALS: BP 122/73; PULSE 81; RESP 20; TEMP 98.5; O2SAT 93
[2017-08-20 20:00] VITALS: BP 114/75; PULSE 91; RESP 18; TEMP 98.8; O2SAT 96
[2017-08-20] MEDS: ATORVASTATIN 20 MG TAB PO SCH (20:56)
[2017-08-20] MEDS: INSULIN DETEMIR 100 UNITS/ML VIAL SQ SCH (20:56)
[2017-08-21] VITALS (7 sets, daily range): BP systolic 98–117; BP diastolic 65–76; PULSE 73–83; RESP 16–20; TEMP 97.3–98.5; O2SAT 94–98
[2017-08-21] MEDS: ACETAMINOPHEN 325 MG TAB PO PRN (00:51)
[2017-08-21] MEDS: LISINOPRIL 5 MG TAB PO SCH (08:42)
[2017-08-21] MEDS: INSULIN ASPART SUPPLEMENTAL SCALE SQ SCH ×4 (08:43→22:08)
--- NOTE | 2017-08-21 09:32 | HHI.PR ---
Subjective Remarks Pt complains of pain in the foot overnight Pt anxious for discharge Objective Vitals Vital Signs Date Time Temp Pulse Resp B/P (MAP) Pulse Ox O2 Delivery O2 Flow Rate FiO2 08/21/17 08:00 97.7 75 20 111/74 (86) 94 08/21/17 04:00 98.2 73 16 104/70 (81) 95 08/21/17 00:00 98.5 83 17 111/65 (80) 95 08/20/17 20:00 98.8 91 18 114/75 (88) 96 08/20/17 16:00 98.5 81 20 122/73 (89) 93 08/20/17 12:00 97.7 81 20 116/65 (82) 93 Result Diagram: 08/19/17 0720 08/19/17 0720 Imaging Last Impressions Foot X-Ray 08/19/17 0000 Signed Impressions: Service Date/Time: Saturday, August 19, 2017 15:19 - CONCLUSION: Bone defect of the distal fifth metatarsal beginning at the distal shaft and also including the metatarsal neck and head indicating recent surgical resection of bone. Vik Amanda MD Objective Remarks General: NAD, AAOx3 Chest: CTA Cardiac: Regular Abd: +BS, soft ND/NT Ext: Right foot bandages are c/d/i A/P Problem List: (1) Diabetic foot ulcer ICD Codes: E11.621 - Type 2 diabetes mellitus with foot ulcer; L97.509 - Non- pressure chronic ulcer of other part of unspecified foot with unspecified severity Status: Acute Plan: Diabetic foot wound Possible osteomyelitis - Pt is a 52 y/o male with poorly controlled diabetes mellitus (hgb A1C 10.6% in April 2017), peripheral neuropathy and hx of T8-9 epidural abscess/ vertebral osteomyelitis in 2016. - Pt has been having issues with a right foot callus on the bottom of the foot for the last several months which he has been following with Dr. Barrett. Pt had a previous culture on 07/09/17 which grew out MSSA per discussion with Dr. Barrett. He was treated with Keflex. Then around 1-2 weeks ago he states that the wound opened up and started oozing clear fluid fluid out. He was started on Clindamycin 300mg TID about 8 days ago. After that he had reported worsening swelling and erythema of the right foot and then noted streaking up the right foot/ankle. He saw Dr. Barrett 3 days ago and the streaking had receded and was sent for a MRI which reportedly noted possible osteomyelitis on 08/16/17. - Pt was sent to the ED at [facility] [place] on 08/18/17 by his stock patch sawyer for concerns of possible osteomyelitis at the 5th MTP joint. - In the ED pt was given a dose of Zosyn and Vancomycin. - We held on continuing antibiotics until after surgery - On 08/19 pt underwent Right 5th metatarsal head resection with debridement Specimen(s) removed: 1. Right foot soft tissue for micro 2. Bone 5th metatarsal head for path 3. Proximal clearing margin 5th metatarsal for path and micro - Surgical cultures with no growth in 24 hours - Surgical path is pending. - Will plan for disposition once path and micro return. - [place] PRN pain - DVT prophylaxis with SCDs (2) DM (diabetes mellitus), type 2, uncontrolled ICD Codes: E11.65 - Type 2 diabetes mellitus with hyperglycemia Status: Chronic Plan: Diabetes mellitus, type 2, poorly controlled - Pt normally takes 60 units of Lantus HS and occasionally uses NovoLog SSI. - Cont. NovoLog SSI, medium dose - Pt blood glucose controlled on 20u Levemir HS; titrate as needed. (3) Diabetic neuropathy ICD Codes: E11.40 - Type 2 diabetes mellitus with diabetic neuropathy, unspecified Status: Chronic (4) Hyperlipidemia ICD Codes: E78.5 - Hyperlipidemia, unspecified Status: Chronic Plan: - Cont. home meds Assessment and Plan Patient examined. Assessment and plan formulated with Alka Barrios PA-C. I agree with the above. Alka Barrios August 21, 2017 09:32 Don Molina DO August 23, 2017 00:02
[2017-08-21] MEDS: ACETAMINOPHEN/HYDROcodone 325 MG/5 MG TAB PO PRN ×2 (15:30→22:16)
[2017-08-21] MEDS: ATORVASTATIN 20 MG TAB PO SCH (22:08)
[2017-08-21] MEDS: INSULIN DETEMIR 100 UNITS/ML VIAL SQ SCH (22:08)
--- NOTE | 2017-08-21 23:36 | HHI.PR ---
Subjective Remarks Patient seen bedside postop day 2. Denies any nausea vomiting fevers or chills. Denies any calf pain shortness of breath or chest pain. States he still has not been given a post op shoe Objective Vital Signs Date Time Temp Pulse Resp B/P (MAP) Pulse Ox O2 Delivery O2 Flow Rate FiO2 08/21/17 16:00 97.3 77 20 110/68 (82) 95 08/21/17 16:00 Room Air 08/21/17 12:00 97.7 79 20 117/74 (88) 98 08/21/17 12:00 Room Air 08/21/17 08:00 97.7 75 20 111/74 (86) 94 08/21/17 08:00 Room Air 08/21/17 04:00 98.2 73 16 104/70 (81) 95 08/21/17 00:00 98.5 83 17 111/65 (80) 95 I/O 08/21/17 08/21/17 08/21/17 08/22/17 08/22/17 08/22/17 07:00 15:00 23:00 07:00 15:00 23:00 Intake Total 1200 ml Balance 1200 ml Intake Oral 1200 ml # Voids 3 3 # Bowel Movements 1 2 Result Diagram: 08/19/17 0720 08/19/17 0720 Imaging Last Impressions Foot X-Ray 08/19/17 0000 Signed Impressions: Service Date/Time: Saturday, August 19, 2017 15:19 - CONCLUSION: Bone defect of the distal fifth metatarsal beginning at the distal shaft and also including the metatarsal neck and head indicating recent surgical resection of bone. Vik Amanda MD Procedures Status post right foot fifth metatarsal head resection with right foot submet 5 wound debridement Other Results Microbiology Date/Time Source Procedure Growth Status 08/18/17 10:10 Blood Peripheral Aerobic Blood Culture - Preliminary NO GROWTH IN 3 DAYS Resulted 08/18/17 10:10 Blood Peripheral Anaerobic Blood Culture - Preliminary NO GROWTH IN 3 DAYS Resulted 08/19/17 13:15 Wound Foot Fungal Smear - Final NO FUNGAL ELEMENTS SEEN. Resulted 08/19/17 13:15 Wound Foot Fungal Culture Pending Resulted Objective Remarks Lower extremity physical exam: Vascular: Dorsalis pedis palpable, posterior tibial palpable. Capillary refill time within normal limits to digits 5 bilateral foot. Edema not present right foot. Neuro: Gross sensation intact to bilateral lower extremity. Pinpoint sensation decreased to bilateral lower extremity. No hyperalgesia noted to bilateral lower extremity Derm: Dressing intact to right lower extremity. No strikethrough noted to right lower extremity. Incision to right dorsal 5th ray with skin well coapted and sutures intact. No erythema, edema noted to surgical site. Submet 5 ulceration noted with granular tissue. Packing pulled. Musculoskeletal: Active/passive dorsiflexion plantarflexion of digits 5 right foot. No pain on right calf squeeze, negative Homans sign. Medications and IVs Current Medications Medications (Trade) Dose Ordered Sig/Kai Route Start Time Stop Time Status Last Admin (Prinivil) 5 mg DAILY PO 08/19/17 09:00 08/21/17 08:42 (NovoLOG SUPPLEMENTAL SCALE) 1 ACHS SLIDING SCALE SQ 08/18/17 17:00 08/21/17 22:08 (D50w (Vial) Inj) 50 ml UNSCH PRN IV PUSH 08/18/17 12:30 08/19/17 08:25 (Glucagon Inj) 1 mg UNSCH PRN OTHER 08/18/17 12:30 (Lipitor) 20 mg HS PO 08/18/17 21:00 08/21/17 22:08 (Tylenol) 650 mg Q4H PRN PO 08/18/17 16:00 08/21/17 00:51 (Zofran Inj) 4 mg Q6H PRN IV 08/18/17 16:00 Lactated Ringer's 1,000 ml @ 30 mls/hr Q24H PRN IV 08/19/17 05:45 08/22/17 05:44 Sodium Chloride 500 ml @ 30 mls/hr [id number] PRN IV 08/19/17 05:45 08/22/17 05:44 (Levemir Inj) 20 units HS SQ 08/19/17 21:00 08/21/17 22:08 ([place] 5-325 Mg) 1 tab Q6H PRN PO 08/21/17 13:45 08/21/17 22:16 Assessment and Plan Assessment and Plan 52-year-old male with osteomyelitis to fifth metatarsal head with submetatarsal 5 ulceration Status post right fifth met head resection with right submetatarsal 5 ulcer debridement date of surgery 08/19/2017 Patient examined and evaluated with all questions answered Dressing changed to right foot, do not remove dressing Patient to follow up within 1 week of discharge OK to DC once bone biopsy returns and appropriate abx recommendations have been made Patient to remain NWB in post op shoMayra Bonner DPM August 21, 2017 23:36
[2017-08-22 04:00] VITALS: BP 93/69; PULSE 70; RESP 16; TEMP 98.1; O2SAT 95
[2017-08-22 06:18] LABS: AUTOMATED NEUTROPHIL # 6.3 TH/MM3 (1.8-7.7); BASOPHIL # 0.1 TH/MM3 (0-0.2); BASOPHIL % 0.7 % (0.0-2.0); EOSINOPHIL # 0.3 TH/MM3 (0-0.4); EOSINOPHIL % 3.4 % (0.0-4.0); HEMATOCRIT 45.3 % (39.0-51.0); HEMOGLOBIN 15.6 GM/DL (13.0-17.0); LYMPH % 22.5 % (9.0-44.0); LYMPHOCYTE # 2.2 TH/MM3 (1.0-4.8); MEAN CELL VOLUME 87.5 FL (80.0-100.0); MEAN CORPUSCULAR HEMOGLOBIN 30.1 PG (27.0-34.0); MEAN CORPUSCULAR HGB CONC 34.4 % (32.0-36.0); MEAN PLATELET VOLUME 9.5 FL (7.0-11.0); MONO % 8.9 % (0.0-8.0); MONOCYTE # 0.9 TH/MM3 (0-0.9); NEUT % 64.5 % (16.0-70.0); PLATELET COUNT 175 TH/MM3 (150-450); RED BLOOD COUNT 5.18 MIL/MM3 (4.50-5.90); RED CELL DISTRIBUTION WIDTH 12.5 % (11.6-17.2); WHITE BLOOD COUNT 9.8 TH/MM3 (4.0-11.0)
[2017-08-22 06:37] LABS: BICARBONATE 26.1 MEQ/L (21.0-32.0); CALCIUM 8.7 MG/DL (8.5-10.1); CREATININE 1.25 MG/DL (0.60-1.30); MAGNESIUM 2.1 MG/DL (1.5-2.5)
[2017-08-22 08:00] VITALS: BP 115/71; PULSE 74; RESP 20; TEMP 97.7; O2SAT 97
[2017-08-22] MEDS: LISINOPRIL 5 MG TAB PO SCH (09:09)
[2017-08-22] MEDS: INSULIN ASPART SUPPLEMENTAL SCALE SQ SCH ×2 (09:09→13:38)
--- NOTE | 2017-08-22 11:51 | HHI.PR ---
Objective Vitals Vital Signs Date Time Temp Pulse Resp B/P (MAP) Pulse Ox O2 Delivery O2 Flow Rate FiO2 08/22/17 08:00 97.7 74 20 115/71 (86) 97 08/22/17 04:00 98.1 70 16 93/69 (77) 95 08/21/17 23:48 98.3 80 16 98/66 (77) 97 08/21/17 23:31 Room Air 08/21/17 20:00 98.0 79 16 113/76 (88) 97 08/21/17 16:00 97.3 77 20 110/68 (82) 95 08/21/17 16:00 Room Air 08/21/17 12:00 97.7 79 20 117/74 (88) 98 08/21/17 12:00 Room Air Result Diagram: 08/22/17 0445 08/22/17 0445 Other Results Laboratory Tests Test 08/22/17 04:45 White Blood Count 9.8 TH/MM3 Red Blood Count 5.18 MIL/MM3 Hemoglobin 15.6 GM/DL Hematocrit 45.3 % Mean Corpuscular Volume 87.5 FL Mean Corpuscular Hemoglobin 30.1 PG Mean Corpuscular Hemoglobin Concent 34.4 % Red Cell Distribution Width 12.5 % Platelet Count 175 TH/MM3 Mean Platelet Volume 9.5 FL Neutrophils (%) (Auto) 64.5 % Lymphocytes (%) (Auto) 22.5 % Monocytes (%) (Auto) 8.9 % Eosinophils (%) (Auto) 3.4 % Basophils (%) (Auto) 0.7 % Neutrophils # (Auto) 6.3 TH/MM3 Lymphocytes # (Auto) 2.2 TH/MM3 Monocytes # (Auto) 0.9 TH/MM3 Eosinophils # (Auto) 0.3 TH/MM3 Basophils # (Auto) 0.1 TH/MM3 CBC Comment DIFF FINAL Differential Comment Blood Urea Nitrogen 20 MG/DL Creatinine 1.25 MG/DL Random Glucose 192 MG/DL Calcium Level 8.7 MG/DL Magnesium Level 2.1 MG/DL Sodium Level 136 MEQ/L Potassium Level 3.9 MEQ/L Chloride Level 101 MEQ/L Carbon Dioxide Level 26.1 MEQ/L Anion Gap 9 MEQ/L Estimat Glomerular Filtration Rate 61 ML/MIN Imaging Last Impressions Foot X-Ray 08/19/17 0000 Signed Impressions: Service Date/Time: Saturday, August 19, 2017 15:19 - CONCLUSION: Bone defect of the distal fifth metatarsal beginning at the distal shaft and also including the metatarsal neck and head indicating recent surgical resection of bone. Vik Amanda MD Objective Remarks General: NAD, AAOx3 Chest: CTA Cardiac: Regular Abd: +BS, soft ND/NT Ext: Right foot bandages are c/d/i A/P Problem List: (1) Diabetic foot ulcer ICD Codes: E11.621 - Type 2 diabetes mellitus with foot ulcer; L97.509 - Non- pressure chronic ulcer of other part of unspecified foot with unspecified severity Status: Acute Plan: Diabetic foot wound Possible osteomyelitis - Pt is a 52 y/o male with poorly controlled diabetes mellitus (hgb A1C 10.6% in April 2017), peripheral neuropathy and hx of T8-9 epidural abscess/ vertebral osteomyelitis in 2015. - Pt has been having issues with a right foot callus on the bottom of the foot for the last several months which he has been following with Dr. Barrett. Pt had a previous culture on 07/09/17 which grew out MSSA per discussion with Dr. Barrett. He was treated with Keflex. Then around 1-2 weeks ago he states that the wound opened up and started oozing clear fluid fluid out. He was started on Clindamycin 300mg TID about 8 days ago. After that he had reported worsening swelling and erythema of the right foot and then noted streaking up the right foot/ankle. He saw Dr. Barrett 3 days ago and the streaking had receded and was sent for a MRI which reportedly noted possible osteomyelitis on 08/16/17. 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 - In the ED pt was given a dose of Zosyn and Vancomycin. - We held on continuing antibiotics until after surgery - On 08/19 pt underwent Right 5th metatarsal head resection with debridement Specimen(s) removed: 1. Right foot soft tissue for micro 2. Bone 5th metatarsal head for path 3. Proximal clearing margin 5th metatarsal for path and micro - Surgical cultures with no growth to date - Surgical path is pending. Discussed with pathology and should have path back today - Will plan for disposition once path and micro return. - Loco PRN pain - DVT prophylaxis with SCDs (2) DM (diabetes mellitus), type 2, uncontrolled ICD Codes: E11.65 - Type 2 diabetes mellitus with hyperglycemia Status: Chronic Plan: Diabetes mellitus, type 2, poorly controlled - Pt normally takes 60 units of Lantus HS and occasionally uses NovoLog SSI. - Cont. NovoLog SSI, medium dose - Pt blood glucose controlled on 20u Levemir HS; titrate as needed. (3) Diabetic neuropathy ICD Codes: E11.40 - Type 2 diabetes mellitus with diabetic neuropathy, unspecified Status: Chronic (4) Hyperlipidemia ICD Codes: E78.5 - Hyperlipidemia, unspecified Status: Chronic Plan: - Cont. home meds Alka Barrios August 22, 2017 11:51
[2017-08-22 12:00] VITALS: BP 88/56; PULSE 87; RESP 20; TEMP 97.5; O2SAT 96
[2017-08-22 12:48] VITALS: BP 90/62
--- NOTE | 2017-08-22 14:44 | HHI.DS ---
Discharge Summary Admission Date August 18, 2017 at 11:03 Discharge Date: August 22, 2017 Admitting Diagnosis Right foot osteomyelitis (1) Diabetic foot ulcer Diagnosis: Principal ICD Codes: E11.621 - Type 2 diabetes mellitus with foot ulcer; L97.509 - Non- pressure chronic ulcer of other part of unspecified foot with unspecified severity Status: Acute (2) DM (diabetes mellitus), type 2, uncontrolled Diagnosis: Secondary ICD Codes: E11.65 - Type 2 diabetes mellitus with hyperglycemia Status: Chronic (3) Diabetic neuropathy Diagnosis: Secondary ICD Codes: E11.40 - Type 2 diabetes mellitus with diabetic neuropathy, unspecified Status: Chronic (4) Hyperlipidemia Diagnosis: Secondary ICD Codes: E78.5 - Hyperlipidemia, unspecified Status: Chronic Consultants Dr. Mayra Rosenthal - Podiatry Brief History Mr. Huynh is a 52 y/o male with poorly controlled diabetes mellitus (hgb A1C 10.6% in April 2017), peripheral neuropathy and hx of T8-9 epidural abscess/ vertebral osteomyelitis in 2016. Pt has been having issues with a right foot callus on the bottom of the foot for the last several months which has been following with Dr. Barrett. Pt had a previous culture on 07/09/17 which grew out MSSA per discussion with Dr. Barrett. He was treated with Keflex. Then around 1-2 weeks ago he states that the wound opened and started oozing clear fluid fluid out. He was started on Clindamycin 300mg TID about 8 days ago. After that he had reported worsening swelling and erythema of the right foot and then noted streaking up the right foot/ankle. He saw Dr. Barrett 3 days ago and the streaking had receded and was sent for a MRI which reportedly noted possible osteomyelitis at the 5th MTP joint on 08/16/17. 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 Pt normally takes 60 units of Lantus HS and occasionally uses NovoLog SSI. He takes Lisinopril for his diabetes. CBC/BMP: 08/22/17 0445 08/22/17 0445 Significant Findings Laboratory Tests Test 08/22/17 04:45 Monocytes (%) (Auto) 8.9 % (0.0-8.0) Blood Urea Nitrogen 20 MG/DL (7-18) Random Glucose 192 MG/DL (74-106) Estimat Glomerular Filtration Rate 61 ML/MIN (>89) Imaging Last Impressions Foot X-Ray 08/19/17 0000 Signed Impressions: Service Date/Time: Monday, August 19, 2017 15:19 - CONCLUSION: Bone defect of the distal fifth metatarsal beginning at the distal shaft and also including the metatarsal neck and head indicating recent surgical resection of bone. Vik Amanda MD PE at Discharge General: NAD, AAOx3 Chest: CTA Cardiac: Regular Abd: +BS, soft ND/NT Ext: Right foot bandages are c/d/i Hospital Course Diabetic foot wound, possible osteomyelitis Pt is a 52 y/o male with poorly controlled diabetes mellitus (hgb A1C 10.6% in April 2017), peripheral neuropathy and hx of T8-9 epidural abscess/vertebral osteomyelitis in 2015. Pt has been having issues with a right foot callus on the bottom of the foot for the last several months which he has been following with Dr. Barrett. Pt had a previous culture on 07/09/17 which grew out MSSA per discussion with Dr. Barrett. He was treated with Keflex. Then around 1-2 weeks ago he states that the wound opened up and started oozing clear fluid fluid out. He was started on Clindamycin 300mg TID about 8 days ago. After that he had reported worsening swelling and erythema of the right foot and then noted streaking up the right foot/ankle. He saw Dr. Barrett 3 days ago and the streaking had receded and was sent for a MRI which reportedly noted possible osteomyelitis on 08/16/17. 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 In the ED pt was given a dose of Zosyn and Vancomycin. We held on continuing antibiotics until after surgery. On 08/19 pt underwent Right 5th metatarsal head resection with debridement, specimen(s) removed: 1. Right foot soft tissue for micro, 2. Bone 5th metatarsal head for path, 3. Proximal clearing margin 5th metatarsal for path and micro. Surgical cultures with no growth to date. Surgical path from the right 5th metatarsal with trabecular bone with reactive features and marrow cavity devitalization, findings possibly indicating resolving chronic osteomyelitis per the pathology report. Case discussed with Dr. Rosenthal prior to discharge and she is recommending Doxycycline 100mg po BID x 6 weeks. [place] PRN pain Pt will need to followup with podiatry, Dr. Rosenthal, in 1 week. Diabetes mellitus, type 2, poorly controlled Pt normally takes 60 units of Lantus HS and occasionally uses NovoLog SSI. Pt will be resumed on his home regimen upon discharge. Pt takes Lisinopril 5mg po daily for prophylaxis as a diabetic but his BP has been running low in the hospital. We will hold this upon discharge and he is to followup with his PCP, Dr. Barba, in 1 week for re-evaluation. Pt Condition on Discharge: Stable Discharge Disposition: Discharge Home Discharge Instructions DIET: Follow Instructions for: Diabetic Diet Activities you can perform: Weight Bearing as [place], See Additionl Instruction ( leave dressing in place until seen by podiatry, wear post-op shoe) Follow up Referrals: PCP Follow-up - [address] Barba Podiatry - 1 Week @ [facility] with Mayra Rosenthal DPM New Medications: Doxycycline Hyclate (Doxycycline Hyclate) 100 Mg Cap 100 MG PO BID for chronic osteomyelitis, #84 CAP 0 Refills Hydrocodone/Acetaminophen (Hydrocodone-Acetamin 5-325 mg) 5 Mg-325 Mg Tablet 1 TAB PO Q6H PRN for pain, #12 TAB 0 Refills Continued Medications: Atorvastatin (Lipitor) 20 Mg Tab 20 MG PO HS for Cholesterol Management, #30 TAB 0 Refills Insulin Aspart Inj (Novolog Inj) 1,000 Unit/10 Ml Vial 0 SQ DIRECTED for Blood Sugar Management, #10 ML 0 Refills Sliding Scale as directed. Insulin Glargine Inj (Lantus Inj) 1,000 Unit/10 Ml Vial 60 UNITS SQ HS for Blood Sugar Management, VIAL 0 Refills Discontinued Medications: Clindamycin (Clindamycin) 150 Mg Cap 300 MG PO TID for Infection, CAP 0 Refills Lisinopril (Lisinopril) 5 Mg Tab 5 MG PO DAILY for Blood Pressure Management, #30 TAB 0 Refills Alka Barrios August 22, 2017 14:44
[2017-08-22] MEDS ORDERED: HYDR-3516 PO (15:03)
[2017-08-22] MEDS ORDERED: DOXY100C PO (15:09)
--- NOTE | 2017-08-22 15:18 | HHI.DCPOC ---
Discharge Care Plan Diagnosis: (1) Hypotension (2) Diabetic foot ulcer (3) DM (diabetes mellitus), type 2, uncontrolled (4) Hyperlipidemia (5) Diabetic neuropathy Goals to Promote Your Health - Patient will complete Doxycycline 100mg twice daily x 6 weeks. - Patient will need to followup with podiatry, Dr. Rosenthal, in 1 week, call for that appt. - Patient will be resumed on his home regimen of diabetes medications upon discharge. - Patient takes Lisinopril 5mg daily for prophylaxis as a diabetic but his blood pressure has been running low in the hospital. We will hold this upon discharge and he is to followup with his PCP, Dr. Barba, in 1 week for re- evaluation. Directions to Meet Your Goals Take your medications as prescribed Follow your dietary instruction Follow activity as directed Keep your appointments as scheduled Take your immunizations and boosters as scheduled If your symptoms worsen call your PCP, if no PCP go to Urgent Care Center or Emergency Room Smoking is Dangerous to Your Health. Avoid second hand smoke Call the 24-hour hour crisis hotline for domestic abuse at Alka Barrios August 22, 2017 15:18
[2017-08-22 16:00] VITALS: BP 119/61; PULSE 87; RESP 20; TEMP 97.7; O2SAT 99
--- NOTE | 2017-08-27 21:41 | MR ---
cc: Mayra Rosenthal DPM DATE: 08/27/2017 SURGEON: Mayra Rosenthal DPM ELECTION ASSISTANT: None. PREOPERATIVE DIAGNOSES: 1. Right foot fifth metatarsal head osteomyelitis. 2. Right foot segment 5 ulceration. POSTOPERATIVE DIAGNOSES: 1. Right foot fifth metatarsal head osteomyelitis. 2. Right foot segment 5 ulceration. PROCEDURE PERFORMED: 1. Debridement and irrigation of segment 5 ulceration. 2. Fifth metatarsal head resection. ANESTHESIA: General with local, infiltrate of 10 mL of 0.5% Marcaine plain infiltrated about the right foot. HEMOSTASIS: Ankle tourniquet, set at 250 mmHg. ESTIMATED BLOOD LOSS: Less than 5 mL. MATERIALS: 2-0 Vicryl, 3-0 nylon. ESTIMATED BLOOD LOSS: Less than 5 mL INJECTABLES: None. COMPLICATIONS: None. INDICATIONS: The patient is well known of mine. The patient has been on and off oral antibiotic for right fifth digit ulceration which was probed to bone. Recently, the patient noted streaking up the ankle. He presents for a fifth metatarsal head resection. He denies any nausea, vomiting, fevers or chills. He would like to proceed with surgical intervention. He understands all of the risks, complications, benefits associated with intervention. DESCRIPTION OF PROCEDURE: The patient was brought into the operating room, placed on the operating table in supine position. General anesthesia was then induced. Right foot was prepped and draped in the usual sterile fashion. Esmarch was utilized to exsanguinate the right lower extremity. Ankle tourniquet was inflated. Attention was then directed to the dorsal fifth metatarsal where a 2 cm incision was made. This incision was deepened through skin and subcutaneous tissue with care to retract all vital neurovascular structures. Bovie cautery was utilized as necessary. Periosteum was dissected through. The MPJ was noted. A McGlamry elevator was utilized to free up any medial, lateral and plantar attachments to the metatarsal head. Sagittal saw was utilized to resect the metatarsal head. This was passed from the field and sent to pathology. A proximal clean margin was sent to path and micro. The site was copiously irrigated, closed with 2-0 Vicryl and 3-0 nylon for skin. Attention was then directed to segment 5 ulcer. This was debrided of all necrotic tissue. Full-thickness excisional debridement was performed to muscle, tendon, ligaments. The site was copiously irrigated. Both sites were then dressed with Adaptic, 4 x 4s, Nasir, cast padding, and Da. The pneumatic ankle tourniquet was deflated. Prompt hyperemic response was noted to the right foot. The patient tolerated procedure and anesthesia well. He was transferred from the OR to PACU with vital signs stable and neurovascular status intact to the right foot We will await pathology and will remain on IV antibiotics and wound VAC. LESLI Quintanilla/FOUZIA , 09:20 PM , 09:40 PM
== END 2017-08-22 17:40 | disposition home or self-care (01) | DRG 502 ==
LOC: NEPC 09:36 → NEDA 11:03 → N04A 13:50
PROVIDERS: ADMIT Hospitalist; ATTEND Hospitalist
PROC: 0KBV0ZZ Excision of Right Foot Muscle, Open Approach (ICD-10-PCS; 2017-08-19)
PROC: 0QBN0ZZ Excision of Right Metatarsal, Open Approach (ICD-10-PCS; principal; 2017-08-19 12:44)
DX: M86.671 Other chronic osteomyelitis, right ankle and foot (principal); E11.42 Type 2 diabetes mellitus with diabetic polyneuropathy; E11.621 Type 2 diabetes mellitus with foot ulcer; L97.519 Non-pressure chronic ulcer of other part of right foot with unspecified severity; E11.65 Type 2 diabetes mellitus with hyperglycemia; E78.5 Hyperlipidemia, unspecified; I10 Essential (primary) hypertension
CPT/HCPCS: 73630; 80048; 80053; 82948; 83036; 83605; 83735; 85025; 85652; 86140; 87015; 87040; 87070; 87102; 87116; 87176; 87205; 87206; 88304; 88307; 88311; 93005; 93923; 94150; 96365; 96368; J0131; J0330; J0690; J1815; J2370; J2405; J2543; J3010; J3370; J3480; J7050